=== PATIENT | male | born 1975 | race Two or more races ===

== ENCOUNTER 2019-10-27 21:30 | Emergency (ER) | payer BC ==
[2019-10-27] MEDS ORDERED: Sodium Chloride 0.9% 10 ML Syringe FLUSH PRN (21:58)
[2019-10-27] MEDS ORDERED: Sodium Chloride 0.9% 2.5 ML Syringe FLUSH PRN (21:58)
[2019-10-27] MEDS ORDERED: Cephalexin 500 MG Cap PO ONE (21:59)
--- NOTE | 2019-10-27 22:24 | CR ---
INDICATION: Knee pain and swelling, no injury TECHNIQUE: Knee radiograph 3 views right COMPARISON: None FINDINGS: Bone: No acute fractures or aggressive bone lesions are identified. Joint: The joint spaces of the medial, lateral, and patellofemoral compartments are unremarkable. No significant knee effusion is seen. Soft tissue: Mild anterior and lateral edema noted. No radiopaque foreign bodies are seen. IMPRESSION: 1. No acute osseous injuries or abnormalities are noted. Dictated by: Filippo Del Real MD @ 10/27/2019 22:23:20 (Electronically Signed)
--- NOTE | 2019-10-27 22:27 | EDM.PDOC ---
ED HPI GENERAL MEDICAL PROBLEM - General Chief Complaint: Lower Extremity Injury/Pain Stated Complaint: KNEE SWOLLEN Time Seen by Provider: 10/27/19 21:58 Source of Information: Reports: Patient - History of Present Illness INITIAL COMMENTS - FREE TEXT/NARRATIVE: History of present illness: 44-year-old male presenting with right leg pain and swelling as well as redness of the medial skin. The patient is primarily Indian-speaking and therefore all medical history and HPI was taken with the assistance of the Indian language therapist phone, and in the presence of the patient's nurse as well. Apparently 4 days ago the patient noticed that he has started to have some swelling in the leg and the skin around the knee. He does not recall any injury to that area. Then he noticed 2 days ago some kind of bumps/pimple appearing thing on his knee which then crusted and healed, however today he noticed some redness. He describes the pain is minimal and not worsened by weightbearing or bending of the knee but he was concerned that there may be an infection or something else going on. No history of blood clots/DVT, no recent immobility, no family history of clots. Review of systems: As per history of present illness and below otherwise all systems reviewed and negative. Past medical history: As per history of present illness and as reviewed below otherwise noncontributory. Surgical history: As per history of present illness and as reviewed below otherwise noncontributory. Inguinal hernia repair Social history: No reported history of drug or alcohol abuse. No tobacco Family history: As per history of present illness and as reviewed below otherwise noncontributory. Physical exam: GEN: no acute distress, well appearing HEENT: Atraumatic, normocephalic, mucous membranes moist, Neck: supple. Lungs: No respiratory distress. Heart: RRR Abdomen: Soft, nondistended, nontender. Back: nontender Extremities: Right lower extremity swelling from the thigh to the calf. No pain with range of motion of the knee, ankle or hip. There is some erythema over the medial knee which extends from mid calf to mid thigh on the medial edge of the leg. This is nontender. The erythema does not extend elsewhere over the knee joint. The remainder of his right and left lower extremities are unremarkable. Neurovascularly intact. Neuro: Awake, alert, oriented. Neuro Exam nonfocal. Skin: warm, dry, erythema, without significant warmth over the medial right leg. No swelling or abscess. There does appear to be some dry crusted rash/abrasion on the anterior right knee that is nontender without erythema. Diagnostics: [] Therapeutics: [] MDM: Impression: [] Plan: [] Definitive disposition and diagnosis as appropriate pending reevaluation and review of above. right knee Pain Score (Numeric/FACES): 3 - Related Data Allergies Allergy/AdvReac Type Severity Reaction Status Date / Time No Known Allergies Allergy Verified 10/27/19 21:59 Home Meds: Home Meds cephALEXin [Keflex] 1,000 mg PO BID #40 cap 10/28/19 [Rx] Past Medical History HEENT History: Reports: None Cardiovascular History: Reports: None Respiratory History: Reports: None Gastrointestinal History: Reports: None Genitourinary History: Reports: None Musculoskeletal History: Reports: None Neurological History: Reports: None Psychiatric History: Reports: None Endocrine/Metabolic History: Reports: None Insulin Pump Model and Art Psychotherapist: None Hematologic History: Reports: None Immunologic History: Reports: None Oncologic (Cancer) History: Reports: None Dermatologic History: Reports: None - Infectious Disease History Infectious Disease History: Reports: None - Past Surgical History GI Surgical History: Reports: Hernia, Abdominal Social & Family History - Family History Family Medical History: Noncontributory - Caffeine Use Caffeine Use: Reports: Soda - Recreational Drug Use Recreational Drug Use: No Review of Systems - Review of Systems Review Of Systems: See Below (See HPI) ED EXAM, GENERAL - Physical Exam Exam: See Below (See HPI) Course - Vital Signs Text/Narrative:: Erythema and swelling of the skin of the medial leg from thigh to calf. Suspect cellulitis. Does not appear to be focalized over the joint and I do not suspect infected/septic joint. Patient has no fevers and pain is minimal. Afebrile. No injury. Ultrasound shows no DVT. X-ray shows no fracture. Labs unremarkable including white blood cell count not elevated, except for slightly elevated CRP, ESR is not elevated. Will discharge with antibiotics and close follow-up. Last Recorded V/S: Last Vital Signs Temp 96.6 F L 10/27/19 21:59 Pulse 70 10/27/19 21:59 Resp 18 10/27/19 21:59 BP 133/81 10/27/19 21:59 Pulse Ox 96 10/27/19 21:59 - Orders/Labs/Meds Orders: Active Orders 24 hr Category Date Time Status Sodium Chloride 0.9% [Saline Flush] Med 10/27/19 21:58 Active 10 ml FLUSH ASDIRECTED PRN Sodium Chloride 0.9% [Saline Flush] Med 10/27/19 21:58 Active 2.5 ml FLUSH ASDIRECTED PRN Saline Lock Insert [OM.PC] Stat Oth 10/27/19 21:58 Ordered Medication Orders Sodium Chloride (Saline Flush) 10 ml FLUSH ASDIRECTED PRN PRN Reason: Keep Vein Open Sodium Chloride (Saline Flush) 2.5 ml FLUSH ASDIRECTED PRN PRN Reason: Keep Vein Open Labs: Laboratory Tests 10/27/19 10/27/19 10/27/19 Range/Units 22:11 22:11 22:11 WBC 7.94 (4.0-11.0) K/uL RBC 4.60 (4.50-5.90) M/uL Hgb 15.4 (13.0-17.0) g/dL Hct 44.4 (38.0-50.0) % MCV 96.5 (80.0-98.0) fL MCH 33.5 H (27.0-32.0) pg MCHC 34.7 (31.0-37.0) g/dL RDW Std Deviation 44.4 (28.0-62.0) fl RDW Coeff of Enrique 13 (11.0-15.0) % Plt Count 161 (150-400) K/uL MPV 11.00 (7.40-12.00) fL Neut % (Auto) 64.0 (48.0-80.0) % Lymph % (Auto) 25.8 (16.0-40.0) % [place] % (Auto) 8.3 (0.0-15.0) % Eos % (Auto) 1.6 (0.0-7.0) % Baso % (Auto) 0.3 (0.0-1.5) % Neut # (Auto) 5.1 (1.4-5.7) K/uL Lymph # (Auto) 2.1 (0.6-2.4) K/uL [place] # (Auto) 0.7 (0.0-0.8) K/uL Eos # (Auto) 0.1 (0.0-0.7) K/uL Baso # (Auto) 0.0 (0.0-0.1) K/uL Nucleated RBC % 0.0 /100WBC Nucleated RBCs # 0 K/uL ESR 12 (0-14) mm/hr Sodium 138 (136-148) mmol/L Potassium 4.2 (3.5-5.1) mmol/L Chloride 101 (98-107) mmol/L Carbon Dioxide 26.6 (21.0-32.0) mmol/L BUN 12 (7.0-18.0) mg/dL Creatinine 0.9 (0.8-1.3) mg/dL Est Cr Clr Drug Dosing 101.33 mL/min Estimated GFR (MDRD) > 60.0 ml/min Glucose 121 H (74-106) mg/dL Calcium 8.8 (8.5-10.1) mg/dL Total Bilirubin 0.3 (0.2-1.0) mg/dL AST 24 (15-37) IU/L ALT 37 (14-63) IU/L Alkaline Phosphatase 87 (46-116) U/L C-Reactive Protein 3.20 H (0.00-0.90) mg/dL Total Protein 7.2 (6.4-8.2) g/dL Albumin 4.0 (3.4-5.0) g/dL Globulin 3.2 (2.6-4.0) g/dL Albumin/Globulin Ratio 1.3 (0.9-1.6) Meds: Medications Generic Name Dose Route Start Last Admin Trade Name Freq PRN Reason Stop Dose Admin Sodium Chloride 10 ml 10/27/19 21:58 Saline Flush FLUSH ASDIRECTED PRN Keep Vein Open Sodium Chloride 2.5 ml 10/27/19 21:58 Saline Flush FLUSH ASDIRECTED PRN Keep Vein Open Discontinued Medications Generic Name Dose Route Start Last Admin Trade Name Freq PRN Reason Stop Dose Admin Cephalexin 1,000 mg 10/27/19 21:59 10/27/19 22:41 Keflex PO 10/27/19 22:00 1,000 mg ONETIME ONE Administration - Re-Assessments/Exams Free Text/Narrative Re-Assessment/Exam: 10/28/19 00:11 Discussed results with the patient, follow-up plan and plan for antibiotics. Voiced understanding. Use gear hobber operator line. Departure - Departure Time of Disposition: 00:11 Disposition: Home, Self-Care 01 Clinical Impression: Cellulitis of right leg - Discharge Information Prescriptions: cephALEXin [Keflex] 1,000 mg PO BID #40 cap Instructions: Cellulitis, Adult, [id number] Referrals: PCP,None [Primary Care Provider] - Forms: ED Department Discharge Additional Instructions: You appear to have an infection of the skin of your leg. There is no blood clot. There is no fracture of the knee. It does not appear to be an infection in the joint of the knee either. These take the antibiotics as prescribed. Please follow-up with 1 of the primary care clinics listed below for reassessment/reevaluation. Return to the emergency department if you develop high fevers, severe pain or the inability to move the leg. Also return if the redness area extends outside of the drawn margins. The following information is given to patients seen in the emergency department who are being discharged to home. This information is to outline your options for follow-up care. We provide all patients seen in our emergency department with a follow-up referral. The need for follow-up, as well as the timing and circumstances, are variable depending upon the specifics of your emergency department visit. If you don't have a primary care physician on staff, we will provide you with a referral. We always advise you to contact your personal physician following an emergency department visit to inform them of the circumstance of the visit and for follow-up with them and/or the need for any referrals to a consulting specialist. The emergency department will also refer you to a specialist when appropriate. This referral assures that you have the opportunity for follow-up care with a specialist. All of these measure are taken in an effort to provide you with optimal care, which includes your follow-up. Under all circumstances we always encourage you to contact your private physician who remains a resource for coordinating your care. When calling for follow-up care, please make the office aware that this follow-up is from your recent emergency room visit. If for any reason you are refused follow-up, please contact the [facility] Emergency Department at and asked to speak to the emergency department charge nurse. Darci Wen [facility] [address] [place] [address] [facility] [address] [place] [id number] Sepsis Event Note (ED) - Evaluation Sepsis Screening Result: No Definite Risk - Focused Exam Vital Signs: Vital Signs Temp Pulse Resp BP Pulse Ox 10/27/19 21:59 96.6 F L 70 18 133/81 96 - My Orders Last 24 Hours: My Active Orders 10/27/19 21:58 Sodium Chloride 0.9% [Saline Flush] 10 ml FLUSH ASDIRECTED PRN Sodium Chloride 0.9% [Saline Flush] 2.5 ml FLUSH ASDIRECTED PRN Saline Lock Insert [OM.PC] Stat - Assessment/Plan Last 24 Hours: My Active Orders 10/27/19 21:58 Sodium Chloride 0.9% [Saline Flush] 10 ml FLUSH ASDIRECTED PRN Sodium Chloride 0.9% [Saline Flush] 2.5 ml FLUSH ASDIRECTED PRN Saline Lock Insert [OM.PC] Stat
[2019-10-27 22:38] LABS: BLOOD UREA NITROGEN,BUN 12 mg/dL (7.0-18.0); CARBON DIOXIDE,CO2 26.6 mmol/L (21.0-32.0); CHLORIDE,CL 101 mmol/L (98-107); GLUCOSE RANDOM 121 mg/dL (74-106); POTASSIUM,K 4.2 mmol/L (3.5-5.1); SODIUM,NA 138 mmol/L (136-148)
--- NOTE | 2019-10-27 23:57 | US ---
INDICATION: Right lower extremity redness, swelling TECHNIQUE: Ultrasound venous duplex right lower extremity. Modi-scale, color Doppler, and spectral Doppler imaging were performed with compression and augmentation. COMPARISON: None FINDINGS: Deep veins: The right common femoral, femoral, popliteal, and visualized calf veins are fully compressible, demonstrate normal color flow, and normal response to mechanical augmentation. The Duplex Doppler waveforms are normal in appearance. The visualized contralateral left common femoral vein is patent. Superficial veins: The visualized greater saphenous and superficial veins of the leg and calf are unremarkable. Soft tissue: No masses or cysts are identified. There is a 11 mm lymph node noted in the inguinal region. IMPRESSION: 1. No sonographic evidence of acute deep venous thrombosis seen. 2. There is a 11 mm lymph node noted in the inguinal region. Dictated by: Filippo Del Real MD @ 10/27/2019 23:56:09 (Electronically Signed)
== END 2019-10-28 00:50 | disposition home or self-care (01) ==
LOC: MW.ED 21:30
DX: L03.115 Cellulitis of right lower limb (principal)
CPT/HCPCS: 36415; 73562; 80053; 85025; 85652; 86140; 93971; 99284; A9270

== ENCOUNTER 2019-11-18 21:50 | Emergency (ER) | payer BC ==
[2019-11-18] MEDS ORDERED: predniSONE 20 MG Tab PO ONE (22:28)
[2019-11-18] MEDS ORDERED: Famotidine 20 MG Tab PO ONE (22:28)
[2019-11-18] MEDS ORDERED: Cetirizine 10 MG Tab PO ONE (22:28)
--- NOTE | 2019-11-18 22:30 | EDM.PDOC ---
ED HPI GENERAL MEDICAL PROBLEM - General Chief Complaint: Skin Complaint Stated Complaint: ALLERGIC RACTION TO MEDS Time Seen by Provider: 11/18/19 22:09 Source of Information: Reports: Patient History Limitations: Reports: No Limitations - History of Present Illness INITIAL COMMENTS - FREE TEXT/NARRATIVE: Patient presents for apparent allergic reaction to bactrim. Is taking for soft tissue infection R knee. Took first dose this evening and around 20-30 min later experienced diffuse red rash. Denies any difficulty breathing or airway involvement. [place] a little "tickle" on throat but otherwise no airway involvement. Denies N/V. - Related Data Allergies Allergy/AdvReac Type Severity Reaction Status Date / Time No Known Allergies Allergy Verified 11/18/19 22:15 Home Meds: Home Meds cephALEXin [Keflex] 1,000 mg PO BID #40 cap 10/28/19 [Rx] cephALEXin [Keflex] 500 mg PO TID 7 Days #21 cap 11/18/19 [Rx] predniSONE 40 mg PO DAILY 5 Days #10 tab 11/18/19 [Rx] Past Medical History HEENT History: Reports: None Cardiovascular History: Reports: None Respiratory History: Reports: None Gastrointestinal History: Reports: None Genitourinary History: Reports: None Musculoskeletal History: Reports: None Neurological History: Reports: None Psychiatric History: Reports: None Endocrine/Metabolic History: Reports: None Insulin Pump Model and Microeconomics Professor: None Hematologic History: Reports: None Immunologic History: Reports: None Oncologic (Cancer) History: Reports: None Dermatologic History: Reports: None - Infectious Disease History Infectious Disease History: Reports: None - Past Surgical History GI Surgical History: Reports: Hernia, Abdominal Social & Family History - Family History Family Medical History: Noncontributory - Caffeine Use Caffeine Use: Reports: Soda ED ROS GENERAL - Review of Systems Review Of Systems: Comprehensive ROS is negative, except as noted in HPI. ED EXAM, SKIN/RASH Exam: See Below Exam Limited By: No Limitations General Appearance: Alert, WD/WN, No Apparent Distress Throat/Mouth: Normal Inspection, Normal Oropharynx, Normal Voice, No Airway Compromise Head: Atraumatic, Normocephalic Neck: Normal Inspection Cardiovascular: Normal Peripheral Pulses, Regular Rate, Rhythm Extremities: Normal Inspection Neurological: Alert Psychiatric: Normal Affect, Normal Mood Skin: Warm, Other (diffuse rash consistent with urticaria ) Course - Vital Signs Last Recorded V/S: Last Vital Signs Temp 97.3 F 11/18/19 22:16 Pulse 61 11/18/19 22:16 Resp 18 11/18/19 22:16 BP 113/68 11/18/19 22:16 Pulse Ox 98 11/18/19 22:16 - Orders/Labs/Meds Meds: Medications Discontinued Medications Generic Name Dose Route Start Last Admin Trade Name Helder PRN Reason Stop Dose Admin Cetirizine HCl 10 mg 11/18/19 22:28 Zyrtec PO 11/18/19 22:29 ONETIME ONE Famotidine 20 mg 11/18/19 22:28 Pepcid PO 11/18/19 22:29 ONETIME ONE Prednisone 60 mg 11/18/19 22:28 Prednisone PO 11/18/19 22:29 ONETIME ONE - Re-Assessments/Exams Free Text/Narrative Re-Assessment/Exam: 11/18/19 22:32 Will give prednisone/zyrtec/pepcid now. Will d/c with short course prednisone. Told to d/c the bactrim and will rx keflex. Departure - Departure Time of Disposition: 22:34 Disposition: Home, Self-Care 01 Condition: Good Clinical Impression: Allergic reaction caused by a drug Qualifiers: Encounter type: initial encounter Qualified Code(s): T78.40XA - Allergy, unspecified, initial encounter - Discharge Information Instructions: Allergies, Adult Referrals: PCP,None [Primary Care Provider] - Forms: ED Department Discharge Additional Instructions: The following information is given to patients seen in the emergency department who are being discharged to home. This information is to outline your options for follow-up care. We provide all patients seen in our emergency department with a follow-up referral. The need for follow-up, as well as the timing and circumstances, are variable depending upon the specifics of your emergency department visit. If you don't have a primary care physician on staff, we will provide you with a referral. We always advise you to contact your personal physician following an emergency department visit to inform them of the circumstance of the visit and for follow-up with them and/or the need for any referrals to a consulting specialist. The emergency department will also refer you to a specialist when appropriate. This referral assures that you have the opportunity for follow-up care with a specialist. All of these measure are taken in an effort to provide you with optimal care, which includes your follow-up. Under all circumstances we always encourage you to contact your private physician who remains a resource for coordinating your care. When calling for follow-up care, please make the office aware that this follow-up is from your recent emergency room visit. If for any reason you are refused follow-up, please contact the [facility] Emergency Department at and asked to speak to the emergency department charge nurse. Follow up with a primary care physician in 1-3 days; if you do not already have one, you can utilize either of the below clinics and let them know you were seen in the ED and require noriega follow-up: Darci Behzad [facility] [address] [place] [address] [id number] [facility] [address] [place] [id number] Sepsis Event Note (ED) - Evaluation Sepsis Screening Result: No Definite Risk - Focused Exam Vital Signs: Vital Signs Temp Pulse Resp BP Pulse Ox 11/18/19 22:16 97.3 F 61 18 113/68 98
== END 2019-11-18 23:20 | disposition home or self-care (01) ==
LOC: MW.ED 21:50
DX: R21 Rash and other nonspecific skin eruption (principal); T36.8X5A Adverse effect of other systemic antibiotics, initial encounter
CPT/HCPCS: 99283; A9270

== ENCOUNTER 2020-12-18 11:32 | Emergency (ER) | payer BC ==
--- NOTE | 2020-12-18 11:57 | EDM.PDOC ---
ED HPI GENERAL MEDICAL PROBLEM - General Chief Complaint: Skin Complaint Stated Complaint: RASH Time Seen by Provider: 12/18/20 11:32 Source of Information: Reports: Patient History Limitations: Reports: No Limitations - History of Present Illness INITIAL COMMENTS - FREE TEXT/NARRATIVE: 45-year-old male presents with skin rash. He notes he was seen in the emergency department for similar and started on a course of prednisone which he stopped taking today because the rash was initially getting better. He notes that the rash returns today. It is diffuse, worse on left upper extremity, itchy. No airway involvement. No fevers. - Related Data Allergies Allergy/AdvReac Type Severity Reaction Status Date / Time sulfamethoxazole Allergy Rash Verified 11/18/19 23:22 [From Bactrim] trimethoprim [From Bactrim] Allergy Rash Verified 11/18/19 23:22 Home Meds: Home Meds cephALEXin [Keflex] 1,000 mg PO BID #40 cap 10/28/19 [Rx] cephALEXin [Keflex] 500 mg PO TID 7 Days #21 cap 11/18/19 [Rx] predniSONE 40 mg PO DAILY 5 Days #10 tab 11/18/19 [Rx] Hydrocortisone [Hydrocortisone 2.5% Crm] 1 appful TOP TID 7 Days #30 gm 12/18/20 [Rx] predniSONE See Taper PO DAILY #20 tab 12/18/20 [Rx] Past Medical History HEENT History: Reports: None Cardiovascular History: Reports: None Respiratory History: Reports: None Gastrointestinal History: Reports: None Genitourinary History: Reports: None Musculoskeletal History: Reports: None Neurological History: Reports: None Psychiatric History: Reports: None Endocrine/Metabolic History: Reports: None Insulin Pump Model and Parasitology Teacher: None Hematologic History: Reports: None Immunologic History: Reports: None Oncologic (Cancer) History: Reports: None Dermatologic History: Reports: None - Infectious Disease History Infectious Disease History: Reports: None - Past Surgical History GI Surgical History: Reports: Hernia, Abdominal Social & Family History - Family History Family Medical History: No Pertinent Family History - Caffeine Use Caffeine Use: Reports: Soda ED ROS GENERAL - Review of Systems Review Of Systems: Comprehensive ROS is negative, except as noted in HPI. ED EXAM, SKIN/RASH Exam: See Below Exam Limited By: No Limitations General Appearance: Alert, WD/WN, No Apparent Distress Ears: Hearing Grossly Normal Throat/Mouth: Normal Voice, No Airway Compromise Head: Atraumatic, Normocephalic Neck: Normal Inspection Respiratory/Chest: No Respiratory Distress, Lungs Clear, Normal Breath Sounds, No Accessory Muscle Use Cardiovascular: Normal Peripheral Pulses, Regular Rate, Rhythm Extremities: Normal Inspection Neurological: Alert, Normal Cognition, Normal Gait Psychiatric: Normal Affect, Normal Mood Skin: Warm, Dry, Intact, Other (Diffuse urticarial rash worse on left upper extremity) Course - Re-Assessments/Exams Free Text/Narrative Re-Assessment/Exam: 12/18/20 11:57 Symptoms and exam consistent with urticaria. Will treat with a longer course of prednisone and will also prescribe hydrocortisone topical for the left upper extremity. I will refer the patient to dermatology as this is happened multiple times. Departure - Departure Time of Disposition: 11:52 Disposition: Home, Self-Care 01 Condition: Good Clinical Impression: Urticaria - Discharge Information Prescriptions: Hydrocortisone [Hydrocortisone 2.5% Crm] 1 appful TOP TID 7 Days #30 gm predniSONE See Taper PO DAILY #20 tab Instructions: Rash, Adult Referrals: Yahir Moreland DO [Primary Care Provider] - Additional Instructions: Your symptoms are suggestive of urticaria. Urticaria is a type of allergic reaction rash. There are many causes of urticaria including contact to an allergen, ingestion of an allergen, and autoimmune disorders. We typically treat this in the emergency department with a course of steroid medication. You were on a course of steroid medication which initially helped but the rash came back as the dose was decreased. We will put you on a stronger dose of this medication. I would recommend following up with a primary care sales representative which is the rash specialist particularly as this is happened multiple times. Information is provided below for the rash specialist. I have also given you a card with his information. He is practicing here locally. He takes most insurance plans but without insurance charges $125 for consultation. [facility] Beni Leon MD [address], [address] [place] [address] [email or web address] [phone] The following information is given to patients seen in the emergency department who are being discharged to home. This information is to outline your options for follow-up care. We provide all patients seen in our emergency department with a follow-up referral. The need for follow-up, as well as the timing and circumstances, are variable depending upon the specifics of your emergency department visit. If you don't have a primary care physician on staff, we will provide you with a referral. We always advise you to contact your personal physician following an emergency department visit to inform them of the circumstance of the visit and for follow-up with them and/or the need for any referrals to a consulting specialist. The emergency department will also refer you to a specialist when appropriate. This referral assures that you have the opportunity for follow-up care with a specialist. All of these measure are taken in an effort to provide you with optimal care, which includes your follow-up. Under all circumstances we always encourage you to contact your private physician who remains a resource for coordinating your care. When calling for follow-up care, please make the office aware that this follow-up is from your recent emergency room visit. If for any reason you are refused follow-up, please contact the [facility] Emergency Department at and asked to speak to the emergency department charge nurse. Please follow up with your primary care physician. If you do not have a primary care physician, see below: [facility] [address] [place] [phone] [facility] [address] [place] [id number] [facility] [address] [place] [id number]
== END 2020-12-18 12:03 | disposition home or self-care (01) ==
LOC: MW.ED 11:32
DX: L50.9 Urticaria, unspecified (principal); Z88.2 Allergy status to sulfonamides
CPT/HCPCS: 99282

== ENCOUNTER 2022-10-10 08:06 | Emergency (ER) | payer BC ==
[2022-10-10] MEDS ORDERED: Ondansetron 4 MG/2 ML SDV IVPUSH ONE (08:22)
[2022-10-10] MEDS ORDERED: Lactated Ringers 1,000 ML IV SCH (08:30)
[2022-10-10 08:50] LABS: BASOPHILS PERCENT AUTO 0.1 % (0.0-1.5); EOSINOPHILS ABSOLUTE AUTO 0.1 K/uL (0.0-0.7); EOSINOPHILS PERCENT AUTO 0.4 % (0.0-7.0); HEMATOCRIT 48.4 % (38.0-50.0); HEMOGLOBIN 17.1 g/dL (13.0-17.0); LYMPHOCYTES ABSOLUTE AUTO 0.4 K/uL (0.6-2.4); LYMPHOCYTES PERCENT AUTO 3.6 % (16.0-40.0); MEAN CORPUSCULAR HEMOGLOBIN 33.9 pg (27.0-32.0); MEAN CORPUSCULAR HGB CONC 35.3 g/dL (31.0-37.0); MONOCYTES ABSOLUTE AUTO 0.5 K/uL (0.0-0.8); MONOCYTES PERCENT AUTO 4.5 % (0.0-15.0); NEUTROPHILS ABSOLUTE AUTO 10.2 K/uL (1.4-5.7); NEUTROPHILS PERCENT AUTO 91.4 % (48.0-80.0); NRBC ABSOLUTE 0 K/uL; PLATELET COUNT,PLT 153 K/uL (150-400); RED BLOOD CELL COUNT 5.04 M/uL (4.50-5.90); WHITE BLOOD CELL COUNT,WBC 11.13 K/uL (4.0-11.0)
[2022-10-10 09:14] LABS: ALBUMIN 3.7 g/dL (3.4-5.0); BILIRUBIN TOTAL 1.1 mg/dL (0.2-1.0); CALCIUM 8.4 mg/dL (8.5-10.1); CARBON DIOXIDE,CO2 26.1 mmol/L (21.0-32.0); CREATININE 0.8 mg/dL (0.8-1.3); EST CRCL DRUG DOSING (CG) 110.44 mL/min; POTASSIUM,K 3.8 mmol/L (3.5-5.1); PROTEIN TOTAL,TP 7.3 g/dL (6.4-8.2)
== END 2022-10-10 10:15 | disposition home or self-care (01) ==
LOC: MW.ED 08:06
DX: R11.2 Nausea with vomiting, unspecified (principal); Z88.1 Allergy status to other antibiotic agents
CPT/HCPCS: 36415; 80053; 83690; 85025; 96361; 96374; 99284; J2405; J7120